=== PATIENT | female | born 1980 | race African-American/Black ===

== ENCOUNTER 2022-08-25 02:16 | Inpatient (IN) | payer BC, SELFPAY ==
--- NOTE | ~2022-08-25 | CT_ITS ---
EXAMINATION: CT HEAD WITHOUT CONTRAST CLINICAL INFORMATION: Altered mental status COMPARISON: None. TECHNIQUE: Contiguous axial imaging was performed from the skull base to vertex without intravenous contrast. This CT examination was performed using dose optimization techniques as appropriate, variously including the following: * Automated exposure control * Adjustment of mA and/or kV according to patient size (this includes techniques or standardized protocols for targeted exams where dose is matched to indication/reason for exam; i.e. extremities or head) Use of iterative reconstruction technique DLP: 696 mGy-cm. FINDINGS: There is no evidence of acute intracranial hemorrhage or territorial infarction. No abnormal mass effect or midline shift is seen. Mcdonnell to white matter differentiation is well preserved. No extra-axial fluid collections are identified. No hydrocephalus. No significant volume loss. There is no abnormal attenuation within the brain parenchyma. The osseous structures and soft tissues are normal. The mastoid air cells and visualized portions of the paranasal sinuses are well aerated. CT/CT head/brain wo IV con IMPRESSION: No acute intracranial pathology.
[2022-08-25 02:21] VITALS: BP 118/74; PULSE 91; RESP 16; TEMP 36.8; O2SAT 99; BMI 20.6
[2022-08-25 03:19] LABS: Appearance Urine Clear; Color Urine Yellow; Glucose Urine UA Negative (Negative); Leukocyte Esterase Urine Negative (Negative); Nitrite Urine Negative (Negative); PH 6.5 (5.0-9.0); Specific Gravity - Urine <= 1.005 (1.005-1.025); UMIC TRIGGER UA YES; Urine Blood Trace (Negative); Urine Ketones 15 mg/dL (Negative); Urine Protein Negative (Neg-Trace)
[2022-08-25 03:23] LABS: UPreg QC Valid YES; Urine Pregnancy NEGATIVE (NEGATIVE)
[2022-08-25] MEDS: diphenhydrAMINE HCL 25 MG CAPSULE 50 MG PO (03:24)
[2022-08-25 03:28] LABS: Bacteria Urine Trace (None Seen); Hyaline Casts Urine 0-2 /LPF (0-2); RBC Urine 0-2 /HPF (0-2); WBC Urine 0-5 /HPF (0-5)
[2022-08-25 03:30] LABS: MANUAL DIFF FLAG NO
[2022-08-25 03:30] LABS: COVID-19 Test Negative (Negative); IDNOW Serial# 6674DD1D
[2022-08-25 03:31] LABS: Basophils Percent Auto 0.2 % (0-2); Eosinophils Percent Auto 0.2 % (0-4); Hematocrit 39.3 % (37.0-47.0); Hemoglobin 13.7 g/dl (12.0-16.0); Imm Gran Abs Auto 0.05 X10*3/uL (0.00-0.03); Imm Gran Pct Auto 0.3 % (0.0-0.4); Lymphocytes Absolute Auto 3.2 X10*3/uL (1.2-4.9); Lymphocytes Percent Auto 18.2 % (20-40); Mean Corpuscular HGB Conc 34.9 g/dl (31.0-35.0); Mean Corpuscular Volume 86.2 fL (80.0-98.0); Monocytes Absolute Auto 1.2 X10*3/uL (0.1-1.2); Monocytes Percent Auto 6.6 % (2-11); Neutrophils Absolute Auto 13.2 x10*3/uL (2.0-8.3); Neutrophils Percent Auto 74.5 % (45-73); Platelet Count 317 X10*3/uL (160-400); Red Blood Count 4.56 X10*6/uL (4.20-5.50); Red Cell Distribution Width 13.5 % (11.0-16.0); White Blood Count 17.7 X10*3/uL (4.8-10.8)
[2022-08-25 03:39] LABS: Amphetamine Screen Urine Not Detected (Not Detect); Barbiturates, Urine Not Detected (Not Detect); Benzodiazepines Screen Urine Not Detected (Not Detect); Cannabinoid Screen Urine POSITIVE (Not Detect); Cocaine Screen Urine Not Detected (Not Detect); Fentanyl, urine Not Detected (Not Detect); Opiate Screen Urine Not Detected (Not Detect); Phencyclidine Screen Urine Not Detected (Not Detect)
[2022-08-25 03:51] LABS: Alanine Aminotransferase 21 U/L (0-31); Albumin Level 4.5 g/dL (3.5-5.0); Alkaline Phosphatase 52 U/L (39-117); Anion Gap 16 (12-20); Aspartate Amino Transferase 15 U/L (5-31); Bilirubin Total 0.8 mg/dL (0.0-1.0); Blood Urea Nitrogen 8 mg/dL (9-16); Calcium 9.4 mg/dL (8.4-10.2); Carbon Dioxide 22 mmol/L (22-29); Chloride 106 mmol/L (96-108); Creatinine Clr Calc Pharmacy 104.9; Estimated Glomerular Filt Rate > 60; Ethanol < 10 mg/dL; Glucose Random 103 mg/dL (60-115); Potassium 3.9 mmol/L (3.3-5.1); Sodium 140 mmol/L (135-145); Total Protein 7.2 g/dL (6.5-8.0)
--- NOTE | 2022-08-25 05:58 | PC.NURSE ---
Patient currently in bed appears sleeping, no distress observed/reported at this time, med rec completed/pending provider's approval, Benadryl 50 mg administered at 0324 as ordered with + effect, thought content disorganized, thought process tangential, VSS, care consult ordered, pending evaluation, will continue to monitor.
--- NOTE | 2022-08-25 06:51 | ED_ITS ---
HPI - Psych General Chief Complaint: Psychiatric Symptoms Stated Complaint: Crisis Time Seen by Provider: 08/25/22 03:37 Source: patient Mode of arrival: ambulatory Limitations: no limitations History of Present Illness HPI Narrative: Patient comes in the emergency room, according to family and friends, patient has not been making sense. Patient has been having delusions and hallucinations. Patient states that she has been vomiting because she needs to drink coconut water from the [place] . Patient states that in 2019 since she would COVID, all of her symptoms exacerbated. Patient is not making much sense. Family reports that the patient has been having poor sleep quality months, out of her medications Related Data Home Medications Medication Instructions Recorded Confirmed budesonide-formoterol HFA 160 2 puff inhalation BID 08/25/22 08/25/22 mcg-4.5 mcg/actuation aerosol inhaler (Symbicort) fluticasone propionate 50 1 spray intranasal DAILY 08/25/22 08/25/22 mcg/actuation nasal spray,suspension sertraline 150 mg capsule 150 mg PO DAILY 08/25/22 08/25/22 Allergies Allergy/AdvReac Type Severity Reaction Status Date / Time Sulfa (Sulfonamide Allergy Intermediate Swelling Verified 08/25/22 03:08 Antibiotics) amoxicillin Allergy Nausea Verified 08/25/22 03:07 Review of Systems Review of Systems: Yes Unobtainable due to mental condition [facility] Past Medical History Medical History (Updated 08/25/22 @ 06:58 by Blaire Rubio MD) Depression Social History Social History Advance Directives: No Physical Exam Vital Signs: Vital Signs: Last Vital Signs Temp 98.3 F 08/25/22 02:21 Pulse 91 08/25/22 02:21 Resp 16 08/25/22 02:21 BP 118/74 08/25/22 02:21 Pulse Ox 99 08/25/22 02:21 O2 Del Method 08/25/22 02:21 BMI result Body Mass Index 20.6 Const: Other: Appearance: Alert. No acute distress. Not making sense Eyes: Pupils equal, round and reactive to light. ENT: Pharynx normal. Neck: Normal inspection. Neck supple. No lymph nodes noted. No crepitus CVS: Normal heart rate and rhythm. Pulses normal. Normal S1 and S2 Respiratory: No respiratory distress. Breath sounds normal. No Wheezing. No rales Abdomen: Soft and nontender. No rigidity. No distention. Skin: Skin warm and dry. Normal skin color. Normal skin turgor. Extremities: No lower extremity edema. No Lacerations. No Rash Neuro: No motor deficit. No sensory deficit. Moving all extremities. No slurred speech. CN 2 through 12 grossly intact Psych: calm, cooperative, normal affect Medications Administered Discontinued Medications Generic Name Dose Route Start Last Admin Trade Name Freq PRN Reason Stop Dose Admin Diphenhydramine HCl 50 mg 08/25/22 03:21 08/25/22 03:24 Diphenhydramine Hcl 25 Mg Capsule PO 08/25/22 03:22 50 mg ONCE ONE Administration Medical Decision Making Medical Decision Making MDM Narrative: -patient smoked marijuana. Unclear if patient has psychosis from smoke marijuana. -patient reported vomiting prior to arrival, patient has not vomited in the ED. patient does not seem dehydrated. -white blood cell count likely reactive leukocytosis. -patient has history of depression but no other psychiatric disorder. We will go ahead and do a CT scan. -patient has no neck rigidity or pain, encephalitis not suspected -please follow-up CT scan. -sign-out given to Dr. Hoffman Lab Data 08/25/22 03:24 08/25/22 03:24 Labs: Lab Results 08/25/22 08/25/22 08/25/22 Range/Units 03:09 03:09 03:09 WBC (4.8-10.8) X10*3/uL RBC (4.20-5.50) X10*6/uL Hgb (12.0-16.0) g/dl Hct (37.0-47.0) % MCV (80.0-98.0) fL MCH (27.0-33.0) pg MCHC (31.0-35.0) g/dl RDW (11.0-16.0) % Plt Count (160-400) X10*3/uL MPV (9.4-12.3) fL Immature Gran % (Auto) (0.0-0.4) % Neut % (Auto) (45-73) % Lymph % (Auto) (20-40) % Haakon % (Auto) (2-11) % Eos % (Auto) (0-4) % Baso % (Auto) (0-2) % Lymph # (Auto) (1.2-4.9) X10*3/uL Haakon # (Auto) (0.1-1.2) X10*3/uL Eos # (Auto) (0.0-0.4) X10*3/uL Baso # (Auto) (0.0-0.2) X10*3/uL Abs Immat Gran (auto) (0.00-0.03) X10*3/uL Absolute Neuts (auto) (2.0-8.3) x10*3/uL Absolute Nucleated RBC (0.0-0.012) X10*3/uL Nucleated RBC % (auto) (0.0-0.2) /100WBC Sodium (135-145) mmol/L Potassium (3.3-5.1) mmol/L Chloride (96-108) mmol/L Carbon Dioxide (22-29) mmol/L Anion Gap (12-20) BUN (9-16) mg/dL Creatinine (0.5-1.4) mg/dL Estim Creat Clear Calc Estimated GFR Random Glucose (60-115) mg/dL Calcium (8.4-10.2) mg/dL Total Bilirubin (0.0-1.0) mg/dL AST (5-31) U/L ALT (0-31) U/L Alkaline Phosphatase (39-117) U/L Total Protein (6.5-8.0) g/dL Albumin (3.5-5.0) g/dL Urine Color Yellow Urine Appearance Clear Urine pH 6.5 (5.0-9.0) Ur Specific [place] <= 1.005 (1.005-1.025) Urine Protein Negative (Neg-Trace) mg/dL Urine Glucose (UA) Negative (Negative) mg/dL Urine Ketones 15 (Negative) mg/dL Urine Blood Trace H (Negative) Urine Nitrite Negative (Negative) Ur Leukocyte Esterase Negative (Negative) Urine RBC 0-2 (0-2) /HPF Urine WBC 0-5 (0-5) /HPF Ur Squamous Epith Cells 6-10 (0-2) /HPF Urine Bacteria Trace (None Seen) Hyaline Casts 0-2 (0-2) /LPF Urine Test (NEGATIVE) Urine Opiates Screen Not Detected (Not Detect) Urine Fentanyl Screen Not Detected (Not Detect) Ur Barbiturates Screen Not Detected (Not Detect) Ur Phencyclidine Scrn Not Detected (Not Detect) Ur Amphetamines Screen Not Detected (Not Detect) U Benzodiazepines Scrn Not Detected (Not Detect) Urine Cocaine Screen Not Detected (Not Detect) U Marijuana (THC) Screen POSITIVE H (Not Detect) Ethyl Alcohol mg/dL COVID-19 (DUTCH) Negative (Negative) COVID-19 Clin Com See Note 08/25/22 08/25/22 08/25/22 Range/Units 03:09 03:24 03:24 WBC 17.7 H (4.8-10.8) X10*3/uL RBC 4.56 (4.20-5.50) X10*6/uL Hgb 13.7 (12.0-16.0) g/dl Hct 39.3 (37.0-47.0) % MCV 86.2 (80.0-98.0) fL MCH 30.0 (27.0-33.0) pg MCHC 34.9 (31.0-35.0) g/dl RDW 13.5 (11.0-16.0) % Plt Count 317 (160-400) X10*3/uL MPV 9.0 L (9.4-12.3) fL Immature Gran % (Auto) 0.3 (0.0-0.4) % Neut % (Auto) 74.5 H (45-73) % Lymph % (Auto) 18.2 L (20-40) % Haakon % (Auto) 6.6 (2-11) % Eos % (Auto) 0.2 (0-4) % Baso % (Auto) 0.2 (0-2) % Lymph # (Auto) 3.2 (1.2-4.9) X10*3/uL Haakon # (Auto) 1.2 (0.1-1.2) X10*3/uL Eos # (Auto) 0.0 (0.0-0.4) X10*3/uL Baso # (Auto) 0.0 (0.0-0.2) X10*3/uL Abs Immat Gran (auto) 0.05 H (0.00-0.03) X10*3/uL Absolute Neuts (auto) 13.2 H (2.0-8.3) x10*3/uL Absolute Nucleated RBC 0.000 (0.0-0.012) X10*3/uL Nucleated RBC % (auto) 0.0 (0.0-0.2) /100WBC Sodium 140 (135-145) mmol/L Potassium 3.9 (3.3-5.1) mmol/L Chloride 106 (96-108) mmol/L Carbon Dioxide 22 (22-29) mmol/L Anion Gap 16 (12-20) BUN 8 L (9-16) mg/dL Creatinine 0.72 (0.5-1.4) mg/dL Estim Creat Clear Calc 104.9 Estimated GFR > 60 Random Glucose 103 (60-115) mg/dL Calcium 9.4 (8.4-10.2) mg/dL Total Bilirubin 0.8 (0.0-1.0) mg/dL AST 15 (5-31) U/L ALT 21 (0-31) U/L Alkaline Phosphatase 52 (39-117) U/L Total Protein 7.2 (6.5-8.0) g/dL Albumin 4.5 (3.5-5.0) g/dL Urine Color Urine Appearance Urine pH (5.0-9.0) Ur Specific [place] (1.005-1.025) Urine Protein (Neg-Trace) mg/dL Urine Glucose (UA) (Negative) mg/dL Urine Ketones (Negative) mg/dL Urine Blood (Negative) Urine Nitrite (Negative) Ur Leukocyte Esterase (Negative) Urine RBC (0-2) /HPF Urine WBC (0-5) /HPF Ur Squamous Epith Cells (0-2) /HPF Urine Bacteria (None Seen) Hyaline Casts (0-2) /LPF Urine Test NEGATIVE (NEGATIVE) Urine Opiates Screen (Not Detect) Urine Fentanyl Screen (Not Detect) Ur Barbiturates Screen (Not Detect) Ur Phencyclidine Scrn (Not Detect) Ur Amphetamines Screen (Not Detect) U Benzodiazepines Scrn (Not Detect) Urine Cocaine Screen (Not Detect) U Marijuana (THC) Screen (Not Detect) Ethyl Alcohol < 10 mg/dL COVID-19 (DUTCH) (Negative) COVID-19 Clin Com Discharge Plan Discharge Clinical Impression: Acute psychosis Patient Disposition: Still a Patient Prescriptions: No Action sertraline 150 mg Capsule 150 mg PO DAILY budesonide-formoterol [Symbicort] 160-4.5 mcg/actuation Hfa Aerosol Inhaler 2 puff INHALATION BID fluticasone propionate [Flonase] 50 mcg/actuation [place],Suspension 1 spray INTRANASAL DAILY Rx Instructions: administer into each nostril Interventions: Crook-Suicide Risk Severity Scale Last Done: 08/25/22 05:41
--- NOTE | 2022-08-25 08:02 | PC.NURSE ---
pt to ct. scan via w/c and back to room with security and mha.
--- NOTE | 2022-08-25 08:32 | PC.NURSE ---
pt's sister called from [place] stating that their mother is sick in [place], but a family friend abdoul beach [phone] will come to visit the pt.
--- NOTE | 2022-08-25 08:38 | PC.NURSE ---
pt spoke to her sister on the phone and appeared to hung up on her sister. pt stated chanting her prayers along with stating if i am the only one that's going to have tomeka, i will have tomeka for all of them . pt then burst out into tears for approx 1 min and laid prone on the floor. pt is now sitting in chair in hallway near nursing station get lab work done.
[2022-08-25 08:39] LABS: Lactic Acid 0.7 mmol/L (0.5-2.0)
--- NOTE | 2022-08-25 08:46 | PC.NURSE ---
pt family friend abdoul beach ([phone]) [place] [facility] [place] that [place] will visit sometime today.
--- NOTE | 2022-08-25 10:41 | PC.NURSE ---
pt's brother sandra ([phone]) called [facility] [place] speaks with [place], but this rn asked him to call back because pt had just hung up on someone on the phone, was screaming and sat on the floor.
--- NOTE | 2022-08-25 11:10 | PC.NURSE ---
pt's family friend abdoul visiting at bedside.
[2022-08-25] MEDS: diphenhydrAMINE HCL 25 MG CAPSULE PO ×2 (11:25→19:00)
[2022-08-25] MEDS: Sertraline HCL 50 MG TABLET 150 MG PO (11:25)
[2022-08-25 11:40] VITALS: BP 129/82; PULSE 94; RESP 18; TEMP 37.1; O2SAT 94
--- NOTE | 2022-08-25 12:25 | PC.NURSE ---
pt's sister alisa ([phone]) called but pt was trying to take a nap.
[2022-08-25] MEDS: Fluticasone/Vilanterol 200/25 BLST.W.DEV 2 PUFF INHALE (12:36)
[2022-08-25] MEDS: Fluticasone Propionate Nasal 16 GM SPRAY 1 SPRAY NOSTRIL-B (12:36)
--- NOTE | 2022-08-25 12:41 | PC.NURSE ---
pt sister ericka nicole ([phone]) called but pt was in her room trying to take a nap.
--- NOTE | 2022-08-25 13:26 | PC.NURSE ---
permission given by supervisor in charge (ashish) pt can have non-plastic/sterofoam cup to drink from. per family pt studied/s effects of plastic/sterofoam on humans that's why she will not/refuses to eat from anything that is plastic/sterofoam.
--- NOTE | 2022-08-25 13:56 | PC.NURSE ---
pt's health care proxy and eldest sister (arlen cole, ) states and gave permisson for any and all medical info/dx/treatment/intervention to be discussed with abdoul beach ([phone]) and/or florian magdaleno therapist ([phone]).
--- NOTE | 2022-08-25 16:08 | PC.NURSE ---
pt resting on bed at this time, sleeping, respirations even and unlabored. Pt did take shower with no issues. Denies SI/HI at this time
--- NOTE | 2022-08-25 16:42 | PC.NURSE ---
pt awake, walking around with other patient at this time
--- NOTE | 2022-08-25 17:01 | PC.NURSE ---
pt requesting to leave and to have her items. Calling Gavin, her friend at this time
--- NOTE | 2022-08-25 18:30 | PC.NURSE ---
PT WAS FOUND IN THE BATHROOM DRY HEAVING. SHE THEN GOT UP AND STOOD IN THE TOILET. SHE WAS ABLE TO BE REDIRECTED BACK TO HER ROOM/ SHE IS TEARFUL, DECLINES TO REMOVE WET SOCKS
[2022-08-25] MEDS: HaloperidoL 5 MG TABLET PO (19:00)
[2022-08-25] MEDS: LORazepam 1 MG TABLET 2 MG PO (19:00)
--- NOTE | 2022-08-25 19:12 | PC.NURSE ---
Late Entry: at approximately 1830, the pt started getting agitated, wanting to leave, attempting to exit. Pt was able to be re-directed to her room but in her room she began screaming. Shortly after she fell asleep. Pt awoke approximately 20 minutes ago and was willing to take her medications
[2022-08-26 05:53] VITALS: BP 109/77; PULSE 85; RESP 17; TEMP 36.8; O2SAT 97
--- NOTE | 2022-08-26 06:03 | PC.NURSE ---
Patient slept through the night, no distress observed/reported, behavior non concerning, positive from Haldol 5 mg administered [id number], thought content paranoid and delusional, disposition per care team is section 12 inpatient bed search, VSS, medication compliant, will continue to monitor.
[2022-08-26] MEDS: Fluticasone/Vilanterol 200/25 BLST.W.DEV 2 PUFF INHALE (09:09)
[2022-08-26] MEDS: Sertraline HCL 50 MG TABLET 150 MG PO (09:10)
[2022-08-26] MEDS: Fluticasone Propionate Nasal 16 GM SPRAY 1 SPRAY NOSTRIL-B (09:10)
--- NOTE | 2022-08-26 10:09 | ECG_ITS ---
Test Reason : check qt Blood Pressure : / mmHG Vent. Rate : 076 BPM Atrial Rate : 076 BPM P-R Int : 150 ms QRS Dur : 090 ms QT Int : 388 ms P-R-T Axes : 057 -48 047 degrees QTc Int : 436 ms Sinus rhythm with marked sinus arrhythmia Left anterior fascicular block Abnormal ECG No previous ECGs available Referred By: Anmol Gagnon Electronically Signed By:Eric Bergman
[2022-08-26 17:15] VITALS: BP 122/88; PULSE 97; RESP 14; TEMP 36.3; O2SAT 97
--- NOTE | 2022-08-26 20:02 | PC.ADMIT ---
PT is a 41 year old [facility] female that arrived on this unit via wheelchair @ 17:15 from the [facility] [place] and was placed on 15 minute safety checks. Legal Status: CV. PT does not have a mental mental health hx and was referred by her therapist. PT has had a change in mental status over the last few weeks and per family and close friend has been delusional, religiously preoccupied and paranoid which is off her baseline. 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 PT attended the and family treated her very poorly while she was there. PT describes coming from poverty in [place] and obtaining her PhD here in the [place] and now feeling like a failure due to not being able to work. PT reports insomnia x 1 month. COVID neg, TOX + for marijuana (pt states it is medicinal), CT negative. 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 PT is a non smoker, quit 3 weeks ago and does not wish to receive any nicotine replacement. PT has already received her flu vaccine this season. All legals signed, treatment plan completed, safety tool to be completed tomorrow due to patient feeling overwhelmed. VS stable and pt is resting comfortably at this time.
[2022-08-26] MEDS: traZODone HCL 50 MG TABLET PO (21:26)
[2022-08-26] MEDS: diphenhydrAMINE HCL 25 MG CAPSULE 50 MG PO (22:42)
--- NOTE | 2022-08-26 23:30 | PC.NURSE ---
Late entry; at approximately 22:30 pt reported feeling congested & my tongue feels funny . PT reports she ate some M&Ms and is worried she may be having an allergic reaction to the the dye (unsure which color dye) but this has happened in the past and she took Benadryl 50mg and the symptoms resolved. call center trainer (Maria L Maza) contacted, order obtained for Benadryl 50mg. PT took PO and symptoms have now resolved.
[2022-08-27 08:30] VITALS: BP 105/58; PULSE 90; RESP 18; TEMP 36.2; O2SAT 98
[2022-08-27] MEDS: Fluticasone Propionate Nasal 16 GM SPRAY 1 SPRAY NOSTRIL-B (08:43)
[2022-08-27] MEDS: Fluticasone/Vilanterol 200/25 BLST.W.DEV 2 PUFF INHALE (08:43)
[2022-08-27 09:09] LABS: Estimated Average Glucose 105 mg/dL; Hemoglobin A1c % 5.3 %
[2022-08-27 09:11] LABS: Alanine Aminotransferase 30 U/L (0-31); Albumin Level 4.7 g/dL (3.5-5.0); Alkaline Phosphatase 61 U/L (39-117); Anion Gap 17 (12-20); Aspartate Amino Transferase 39 U/L (5-31); Bilirubin Total 1.2 mg/dL (0.0-1.0); Blood Urea Nitrogen 9 mg/dL (9-16); Carbon Dioxide 23 mmol/L (22-29); Chloride 104 mmol/L (96-108); Cholesterol 215 mg/dL; Creatinine Clr Calc Pharmacy 79.5; Estimated Glomerular Filt Rate > 60; Glucose Fasting 109 mg/dL (60-99); HDL Cholesterol 59 mg/dL; LDL Cholesterol Calculated 140 mg/dl; Potassium 5.2 mmol/L (3.3-5.1); Sodium 139 mmol/L (135-145); Triglycerides 80 mg/dL
[2022-08-27 09:41] LABS: Folate 15.7 ng/mL (> or = 4.0); Free T4 (Free Thyroxine) 1.16 ng/dL (0.71-1.85); Thyroid Stimulating Hormone 1.21 uIU/mL (0.32-4.0); Vitamin B12 1568 pg/mL (200-900)
--- NOTE | 2022-08-27 11:27 | P.HPPS_ITS ---
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 Pt reports chronic mild-moderate depression throughout life, sometimes severe, not attending to ADL's; no hx of manic symtoms. 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 Pt was changed to Zoloft and in May 2022 it was quickly titrated to 150mg at which point pt said she quickly felt really good... at this time She also started medical cannabis and started having great ideas...visions and ideas started and became what sounds likely to be hypomanic. Pt is aware that Recently increased stressors Pt's brother 2 weeks ago and foreign Visa troubles seems to have pushed patient into noel. Pt is grandiose, showing conventional mortgage underwriter non- sense math equations about infinity; she says i did things so the police would come, it was ex-finity and if unplugged the police would come...i have all these ideas and need to write down...give it to the FBI... Pt madina a map of [place], said we've been lied to and map is upside down... Pt said she has not slept more than 2 hours a night in weeks. Today on the unit, she thought she was and went into labor in hallway, though was able to be redirected. Pt agrees that she is probably manic and so came in for treatment. No drugs/alcohol; currently no AVH; no SI/HI. Agrees to start [place]. Past Psychiatric History: depression/anxiety; has therapist trials of Lexapro, Wellbutrin, Zoloft Medical Evaluation Reviewed: Yes [facility] Medical History (Updated 08/28/22 @ 09:29 by Mekhi Gallegos MD) Depression PTSD (post-traumatic stress disorder) Family History: brother: bipolar Social History: from [place] PhD in [employer], teaches at [employer] Foreign Visa concerns Substance History: none; uses medical cannabis Trauma History: hx of trauma as teenager; also as professor Diagnostics Vital Signs (24Hr): Vital Signs - 24 hr 08/26/22 17:15 08/27/22 08:30 Temperature 97.3 F 97.1 F Pulse Rate 97 90 Respiratory Rate 14 18 Blood Pressure 122/88 105/58 L Pulse Oximetry 97 98 Oxygen Delivery Method Room Air Room Air BMI result Body Mass Index 20.6 Labs 08/25/22 03:24 08/27/22 08:25 Labs: Laboratory Results - last 48 hr 08/27/22 08/27/22 08:25 08:25 Sodium 139 Potassium 5.2 H D Chloride 104 Carbon Dioxide 23 Anion Gap 17 BUN 9 Creatinine 0.95 Estim Creat Clear Calc 79.5 Estimated GFR > 60 Fasting Glucose 109 H Estimat Average Glucose 105 Hemoglobin A1c % 5.3 Calcium 10.0 D Magnesium 2.0 Total Bilirubin 1.2 H AST 39 H ALT 30 Alkaline Phosphatase 61 Total Protein 8.0 Albumin 4.7 Triglycerides 80 Cholesterol 215 LDL Cholesterol, Calc 140 HDL Cholesterol 59 Vitamin B12 1568 H Folate 15.7 TSH 1.21 Free T4 1.16 Imaging Radiology Impressions: ITS Impressions Head CT 08/25/22 08:13 IMPRESSION: No acute intracranial pathology. Meds/Allergies Meds Home Medications Medication Instructions Recorded Confirmed Type budesonide-formoterol HFA 160 2 puff inhalation BID 08/25/22 08/25/22 History mcg-4.5 mcg/actuation aerosol inhaler (Symbicort) fluticasone propionate 50 1 spray intranasal DAILY 08/25/22 08/25/22 History mcg/actuation nasal spray,suspension sertraline 150 mg capsule 150 mg PO DAILY 08/25/22 08/25/22 History Allergies Allergies Allergy/AdvReac Type Severity Reaction Status Date / Time Sulfa (Sulfonamide Allergy Intermediate Swelling Verified 08/25/22 03:08 Antibiotics) amoxicillin Allergy Nausea Verified 08/25/22 03:07 Mental Status Exam Mental Status Exam Narrative: Pt is alert and oriented; behavior is cooperative, friendly, manic, verbose; patient is not in distress; dressed in casual attire adequate groomed; mood is described as good and affect expansive; eye contact appropriate; Speech is hyperverbal, moderately pressured; normal volume and prosody; psychomotor agitation present; thought process can be goal directed, but also tangential, moderately disorganized; Thought content is on grandiose ideas; denies any SI/HI. Denies AVh. Patients insight and judgment are impaired. 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 -hx of depression, sometimes severe; this is first manic episode triggered by titrated Zoloft (plus cannabis). Pt grandiose and manic, but has insight into illness and wants treatment. Agreed to start [place] PLAN: CV Q15 min checks START [place] ER 600mg qhs continue trazodone 50mg since pt said made her sleep for first time in week DC zoloft as it's triggered noel will address meds for ptsd/anxiety once mood is stabilized repeat CMP/CBC since elevated lab values on admission Patient educated on: diagnosis and medication risk/benefits Informed Consent: understands and further education needed Reason for continued inpatient stay Substantial Risk for: inability to function Statement Statement: I have reviewed the history and physical and performed a pertinent examination on my patient. No changes have occurred unless specified. If the History and Physical was not performed prior to admission, the Hospitalist's service will be consulted for completing the admission physical. Time Spent With Patient Time: Total time managing care of this patient today ____ minutes.
[2022-08-27] MEDS: Acetaminophen 325 MG TABLET 650 MG PO (14:22)
[2022-08-27 14:32] VITALS: BMI 20.5
[2022-08-27 18:00] VITALS: BP 118/78; PULSE 85; RESP 16; TEMP 36.4; O2SAT 98
[2022-08-27] MEDS: Magnesium Hydrox/Alum Hydrox 30 ML ORAL.SUSP PO (18:02)
[2022-08-27] MEDS: traZODone HCL 50 MG TABLET PO (21:03)
[2022-08-27] MEDS: Lithium Carbonate ER 300 MG TABLET.ER 600 MG PO (21:03)
[2022-08-28 08:12] LABS: MANUAL DIFF FLAG NO
[2022-08-28 08:15] LABS: Basophils Absolute Auto 0.1 X10*3/uL (0.0-0.2); Basophils Percent Auto 0.4 % (0-2); Eosinophils Absolute Auto 0.3 X10*3/uL (0.0-0.4); Hematocrit 44.4 % (37.0-47.0); Hemoglobin 14.8 g/dl (12.0-16.0); Imm Gran Abs Auto 0.07 X10*3/uL (0.00-0.03); Imm Gran Pct Auto 0.5 % (0.0-0.4); Lymphocytes Absolute Auto 3.2 X10*3/uL (1.2-4.9); Lymphocytes Percent Auto 22.3 % (20-40); Mean Corpuscular HGB Conc 33.3 g/dl (31.0-35.0); Mean Corpuscular Hemoglobin 29.7 pg (27.0-33.0); Mean Corpuscular Volume 89.2 fL (80.0-98.0); Mean Platelet Volume 9.2 fL (9.4-12.3); Monocytes Absolute Auto 0.9 X10*3/uL (0.1-1.2); Monocytes Percent Auto 6.4 % (2-11); Neutrophils Absolute Auto 9.8 x10*3/uL (2.0-8.3); Neutrophils Percent Auto 68.4 % (45-73); Platelet Count 322 X10*3/uL (160-400); Red Blood Count 4.98 X10*6/uL (4.20-5.50); Red Cell Distribution Width 13.4 % (11.0-16.0); White Blood Count 14.3 X10*3/uL (4.8-10.8)
[2022-08-28 08:31] LABS: Alanine Aminotransferase 32 U/L (0-31); Albumin Level 4.5 g/dL (3.5-5.0); Alkaline Phosphatase 61 U/L (39-117); Anion Gap 13 (12-20); Aspartate Amino Transferase 39 U/L (5-31); Bilirubin Total 0.6 mg/dL (0.0-1.0); Blood Urea Nitrogen 7 mg/dL (9-16); Calcium 9.7 mg/dL (8.4-10.2); Carbon Dioxide 26 mmol/L (22-29); Chloride 103 mmol/L (96-108); Estimated Glomerular Filt Rate > 60; Glucose Random 82 mg/dL (60-115); Potassium 4.8 mmol/L (3.3-5.1); Sodium 137 mmol/L (135-145); Total Protein 7.4 g/dL (6.5-8.0)
[2022-08-28 10:45] VITALS: BP 120/59; PULSE 90; RESP 18; TEMP 36.9; O2SAT 98
--- NOTE | 2022-08-28 15:38 | P.PNPSI_ITS ---
Subjective Subjective Date of Service: 08/28/22 Reason For Visit: Rule out Thea with Psychosis Subjective Notes: Conditional Voluntary Interim History: Pt talkative, reports she has been helping other patients on the unit as she has calmer demeanor. She reports last night it was very chaotic on unit and she was not able to sleep. She reports wanting to go home as she does not feel safe here. She reports something odd was happening at apartment complex where she resides and she had asked to be moved somewhere else. She denies SI/HI. Taking medications. She reports she has two male peers convinced that I'm their , so they behave. Pt observed giving note to one male pt while on the unit. redirected in terms of boundaries. Review of Systems Review of Systems Yes Unobtainable due to mental condition Mental Status Exam Mental Status Exam Narrative: Pt is alert and oriented; behavior is cooperative, friendly, manic, verbose; patient is not in distress; dressed in casual attire adequate groomed; mood is described as good and affect expansive; eye contact appropriate; Speech is hyperverbal, moderately pressured; normal volume and prosody; psychomotor agitation present; thought process can be goal directed, but also tangential, moderately disorganized; Thought content is on grandiose ideas; denies any SI/HI. Denies AVh. Patients insight and judgment are impaired. Diagnostics Vital Signs (24Hr): Vital Signs - 24 hr 08/27/22 18:00 08/28/22 10:45 Temperature 97.6 F 98.4 F Pulse Rate 85 90 Respiratory Rate 16 18 Blood Pressure 118/78 120/59 L Pulse Oximetry 98 98 Oxygen Delivery Method Room Air Room Air BMI result Body Mass Index 20.5 Labs 08/28/22 07:54 08/28/22 07:54 Labs: Laboratory Results - last 48 hr 08/27/22 08/27/22 08/28/22 08:25 08:25 07:54 WBC 14.3 H RBC 4.98 Hgb 14.8 Hct 44.4 MCV 89.2 MCH 29.7 MCHC 33.3 RDW 13.4 Plt Count 322 MPV 9.2 L Immature Gran % (Auto) 0.5 H Neut % (Auto) 68.4 Lymph % (Auto) 22.3 [facility] % (Auto) 6.4 Eos % (Auto) 2.0 Baso % (Auto) 0.4 Lymph # (Auto) 3.2 [facility] # (Auto) 0.9 Eos # (Auto) 0.3 Baso # (Auto) 0.1 Abs Immat Gran (auto) 0.07 H Absolute Neuts (auto) 9.8 H Absolute Nucleated RBC 0.000 Nucleated RBC % (auto) 0.0 Sodium 139 Potassium 5.2 H D Chloride 104 Carbon Dioxide 23 Anion Gap 17 BUN 9 Creatinine 0.95 Estim Creat Clear Calc 79.5 Estimated GFR > 60 Random Glucose Fasting Glucose 109 H Estimat Average Glucose 105 Hemoglobin A1c % 5.3 Calcium 10.0 D Magnesium 2.0 Total Bilirubin 1.2 H AST 39 H ALT 30 Alkaline Phosphatase 61 Total Protein 8.0 Albumin 4.7 Triglycerides 80 Cholesterol 215 LDL Cholesterol, Calc 140 HDL Cholesterol 59 Vitamin B12 1568 H Folate 15.7 TSH 1.21 Free T4 1.16 08/28/22 07:54 WBC RBC Hgb Hct MCV MCH MCHC RDW Plt Count MPV Immature Gran % (Auto) Neut % (Auto) Lymph % (Auto) [facility] % (Auto) Eos % (Auto) Baso % (Auto) Lymph # (Auto) [facility] # (Auto) Eos # (Auto) Baso # (Auto) Abs Immat Gran (auto) Absolute Neuts (auto) Absolute Nucleated RBC Nucleated RBC % (auto) Sodium 137 Potassium 4.8 Chloride 103 Carbon Dioxide 26 Anion Gap 13 BUN 7 L Creatinine 0.78 Estim Creat Clear Calc 96.0 Estimated GFR > 60 Random Glucose 82 Fasting Glucose Estimat Average Glucose Hemoglobin A1c % Calcium 9.7 Magnesium Total Bilirubin 0.6 AST 39 H ALT 32 H Alkaline Phosphatase 61 Total Protein 7.4 Albumin 4.5 Triglycerides Cholesterol LDL Cholesterol, Calc HDL Cholesterol Vitamin B12 Folate TSH Free T4 Imaging Radiology Impressions: ITS Impressions Head CT 08/25/22 08:13 IMPRESSION: No acute intracranial pathology. Medications Medications Current Medications Acetaminophen (Acetaminophen 325 Mg Tablet) 650 mg PO Q6H PRN PRN Reason: Headache/Pain Mild Scale (1-3) Al Hydroxide/Mg Hydroxide (Magnesium Hydrox/Alum Hydrox 30 Ml Oral.Susp) 30 ml PO Q6H PRN PRN Reason: Heartburn/Nausea Last Admin: 08/27/22 18:02 Dose: 30 ml Diphenhydramine HCl (Diphenhydramine Hcl 25 Mg Capsule) 50 mg PO Q6H PRN PRN Reason: allergy Last Admin: 08/26/22 22:42 Dose: 50 mg Fluticasone Propionate (Fluticasone Propionate Nasal 16 Gm [place]) 1 spray NOSTRIL-B DAILY [facility] Last Admin: 08/28/22 08:27 Dose: Not Given Fluticasone/Vilanterol (Fluticasone/Vilanterol 200/25 Blst.W.Dev) 2 puff INHALE RDAILY [facility] Last Admin: 08/28/22 08:27 Dose: Not Given Hydroxyzine HCl (Hydroxyzine Hcl 25 Mg Tablet) 25 mg PO Q6H PRN PRN Reason: Anxiety [place] Carbonate ([place] Carbonate Er 300 Mg Tablet.Er) 600 mg PO BEDTIME [facility] Last Admin: 08/27/22 21:03 Dose: 600 mg Magnesium Hydroxide (Milk Of Magnesia 30 Ml Oral.Susp) 30 ml PO DAILY PRN PRN Reason: Constipation Trazodone HCl (Trazodone Hcl 50 Mg Tablet) 50 mg PO BEDTIME [facility] Last Admin: 08/27/22 21:03 Dose: 50 mg Trazodone HCl (Trazodone Hcl 50 Mg Tablet) 50 mg PO BEDTIME PRN PRN Reason: Insomnia Allergies Allergies Allergy/AdvReac Type Severity Reaction Status Date / Time Sulfa (Sulfonamide Allergy Intermediate Swelling Verified 08/25/22 03:08 Antibiotics) amoxicillin Allergy Nausea Verified 08/25/22 03:07 Assessment & Plan Assessment & Plan (1) Bipolar I disorder: Status: Acute Code(s): F31.9 - Bipolar disorder, unspecified (2) PTSD (post-traumatic stress disorder): Status: Acute Code(s): F43.10 - Post-traumatic stress disorder, unspecified Plan 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 -hx of depression, sometimes severe; this is first manic episode triggered by titrated Zoloft (plus cannabis). Pt grandiose and manic, but has insight into illness and wants treatment. Agreed to start [place] PLAN: CV Q15 min checks START [place] ER 600mg qhs continue trazodone 50mg since pt said made her sleep for first time in week DC zoloft as it's triggered thea will address meds for ptsd/anxiety once mood is stabilized repeat CMP/CBC since elevated lab values on admission 08/28 continue tx. Reason for contiued inpatient stay Substantial Risk for: inability to function Time Spent With Patient Time: Total time managing care of this patient today ____ minutes.
[2022-08-28 18:00] VITALS: BP 118/68; PULSE 91; RESP 16; TEMP 36.6; O2SAT 98
[2022-08-28] MEDS: Lithium Carbonate ER 300 MG TABLET.ER 600 MG PO (19:56)
[2022-08-28] MEDS: traZODone HCL 50 MG TABLET PO (19:57)
--- NOTE | 2022-08-28 20:04 | PC.NURSE ---
Pt's friend Gavin picked up pt's passport to take home for safe keeping. PT signed off on this.
[2022-08-28] MEDS: Fluticasone Propionate Nasal 16 GM SPRAY 1 SPRAY NOSTRIL-B (21:54)
[2022-08-29] MEDS: diphenhydrAMINE HCL 25 MG CAPSULE 50 MG PO ×2 (02:15→10:06)
[2022-08-29] MEDS: Fluticasone/Vilanterol 200/25 BLST.W.DEV 2 PUFF INHALE (08:05)
[2022-08-29] MEDS: Fluticasone Propionate Nasal 16 GM SPRAY 1 SPRAY NOSTRIL-B (08:05)
[2022-08-29 08:15] VITALS: BP 106/59; PULSE 86; RESP 16; TEMP 36.3; O2SAT 98
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
[2022-08-29 16:56] VITALS: BP 102/68; PULSE 80; RESP 18; TEMP 36.4; O2SAT 98
[2022-08-29] MEDS: Lithium Carbonate ER 300 MG TABLET.ER 600 MG PO (21:02)
[2022-08-29] MEDS: traZODone HCL 50 MG TABLET PO (21:02)
[2022-08-30] MEDS: diphenhydrAMINE HCL 25 MG CAPSULE 50 MG PO ×3 (00:06→21:56)
[2022-08-30] MEDS: Fluticasone/Vilanterol 200/25 BLST.W.DEV 2 PUFF INHALE (09:11)
[2022-08-30] MEDS: Fluticasone Propionate Nasal 16 GM SPRAY 1 SPRAY NOSTRIL-B (09:11)
[2022-08-30 09:43] VITALS: BP 127/77; PULSE 104; RESP 16; TEMP 36.8; O2SAT 99
--- NOTE | 2022-08-30 11:11 | HO.PSYCHPN ---
Subjective Subjective Date of Service: 08/30/22 Reason For Visit: Rule out Thea with Psychosis Subjective Notes: 3 Day Interim History: Met with patient. Discussed with nursing. Completed 3 day notice yesterday. It appears sister from [place] came yesterday to bring patient home. Unclear if patient has a sister to come and bring her home. Otherwise patient irritable with designer writer and reported she would not talk with him today. Did give permission to speak with her sister Chary at [phone]. As per nursing patient has been telling family there is mold in the hospital and fumigation as needed and she needs to be discharged. Nursing supervisor drying and softening aware and nursing will check areas the patient reports mood is. Medication Compliance: Intermittent Side effects from medications: No Attending Groups: Intermittent Review of Systems Acute medical concerns: No Review of Systems Review of Systems Yes Unobtainable due to mental status Mental Status Exam Mental Status Exam Narrative: Irritable. Appropriately presented. Refused to engage. Does appear to have some paranoia. Insight and judgment poor Diagnostics Vital Signs (24Hr): Vital Signs - 24 hr 08/29/22 16:56 08/30/22 09:43 Temperature 97.6 F 98.2 F Pulse Rate 80 104 H Respiratory Rate 18 16 Blood Pressure 102/68 127/77 Pulse Oximetry 98 99 Oxygen Delivery Method Room Air Room Air BMI result Body Mass Index 20.5 Labs 08/28/22 07:54 08/28/22 07:54 Imaging Radiology Impressions: ITS Impressions Head CT 08/25/22 08:13 IMPRESSION: No acute intracranial pathology. Medications Medications Current Medications Acetaminophen (Acetaminophen 325 Mg Tablet) 650 mg PO Q6H PRN PRN Reason: Headache/Pain Mild Scale (1-3) Al Hydroxide/Mg Hydroxide (Magnesium Hydrox/Alum Hydrox 30 Ml Oral.Susp) 30 ml PO Q6H PRN PRN Reason: Heartburn/Nausea Last Admin: 08/27/22 18:02 Dose: 30 ml Diphenhydramine HCl (Diphenhydramine Hcl 25 Mg Capsule) 50 mg PO Q6H PRN PRN Reason: allergy Last Admin: 08/30/22 09:14 Dose: 50 mg Fluticasone Propionate (Fluticasone Propionate Nasal 16 Gm [place]) 1 spray NOSTRIL-B DAILY [facility] Last Admin: 08/30/22 09:11 Dose: 1 spray Fluticasone/Vilanterol (Fluticasone/Vilanterol 200/25 Blst.W.Dev) 2 puff INHALE RDAILY [facility] Last Admin: 08/30/22 09:11 Dose: 2 puff Hydroxyzine HCl (Hydroxyzine Hcl 25 Mg Tablet) 25 mg PO Q6H PRN PRN Reason: Anxiety [place] Carbonate ([place] Carbonate Er 300 Mg Tablet.Er) 600 mg PO BEDTIME [facility] Last Admin: 08/29/22 21:02 Dose: 600 mg Magnesium Hydroxide (Milk Of Magnesia 30 Ml Oral.Susp) 30 ml PO DAILY PRN PRN Reason: Constipation Trazodone HCl (Trazodone Hcl 50 Mg Tablet) 50 mg PO BEDTIME [facility] Last Admin: 08/29/22 21:02 Dose: 50 mg Trazodone HCl (Trazodone Hcl 50 Mg Tablet) 50 mg PO BEDTIME PRN PRN Reason: Insomnia Allergies Allergies Allergy/AdvReac Type Severity Reaction Status Date / Time Sulfa (Sulfonamide Allergy Intermediate Swelling Verified 08/25/22 03:08 Antibiotics) amoxicillin Allergy Nausea Verified 08/25/22 03:07 Assessment & Plan Assessment & Plan (1) Bipolar I disorder: Status: Acute Code(s): F31.9 - Bipolar disorder, unspecified (2) PTSD (post-traumatic stress disorder): Status: Acute Code(s): F43.10 - Post-traumatic stress disorder, unspecified Plan 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 -hx of depression, sometimes severe; this is first manic episode triggered by titrated Zoloft (plus cannabis). Pt grandiose and manic, but has insight into illness and wants treatment. Agreed to start [place] PLAN: CV Q15 min checks START [place] ER 600mg qhs continue trazodone 50mg since pt said made her sleep for first time in week DC zoloft as it's triggered thea will address meds for ptsd/anxiety once mood is stabilized repeat CMP/CBC since elevated lab values on admission 08/30: day notice. Liaise with family as pt permits Reason for contiued inpatient stay Substantial Risk for: inability to function Time Spent With Patient Time: Total time managing care of this patient today ____ minutes.
[2022-08-30] MEDS: Acetaminophen 325 MG TABLET 650 MG PO (13:31)
[2022-08-30] MEDS: hydrOXYzine HCL 25 MG TABLET PO (13:31)
--- NOTE | 2022-08-30 14:36 | PC.NURSE ---
Pt approached secretary of police desk with a peer (Oliver) asking for a release so that she could sit in on his discussions with the doctor and advocate for his needs. When it was explained to her that he could not sign a release to another inpatient she insisted that he sign a release for her sister instead. After multiple attempts at redirection, pt eventually decided to take hydroxyzine for her anxiety and allergic symptoms and rest.
[2022-08-30] MEDS: traZODone HCL 50 MG TABLET PO (21:54)
[2022-08-30] MEDS: Lithium Carbonate ER 300 MG TABLET.ER 600 MG PO (21:54)
[2022-08-30 21:55] VITALS: BP 101/65; PULSE 77; TEMP 36.2
[2022-08-31] MEDS: diphenhydrAMINE HCL 25 MG CAPSULE 50 MG PO (06:21)
[2022-08-31] MEDS: Fluticasone/Vilanterol 200/25 BLST.W.DEV 2 PUFF INHALE (08:43)
[2022-08-31] MEDS: Fluticasone Propionate Nasal 16 GM SPRAY 1 SPRAY NOSTRIL-B (08:43)
--- NOTE | 2022-08-31 09:00 | P.PNPSI_ITS ---
Subjective Subjective Date of Service: 08/31/22 Reason For Visit: Rule out Thea with Psychosis Interim History: Met with patient; discussed with team; reviewed notes from covering provider; further discussed case with social service worker. Direct Mail Clerk finds that Patient is organized in speech and behavior; speech is regular rate, rhythm and prosody and not pressured; she is well groomed. Her thought process is linear and logical; she is calm, articulate, able to listen, and explains herself in an organized way with appropriate perspective and insight. Patient is sleeping through the night. Discussed with social service worker who agrees with this assessment and that patient is appropriate to continue care in the community. Patient reports that she is feeling much better since getting on lithium. She continues to agree that she was manic at admission but is no longer feeling anxious, depression resolved and is feeling much more clear minded; she says there are several things she does not quite remember about the days prior to admission but it is starting to come back to her and getting increasingly clear. Patient and technical publications writer discussed comments she made last week, regarding mathematical equations, map of [place]... Patient agrees that much of that does not make sense; she ties some of it into her own personal exploration of her roots to [place]; she says these are just personal thoughts and she has never shared that with anybody else and has no intentions of it. She discussed her history again and agrees that this episode was likely triggered right after her Zoloft dose was increased to 150 mg; patient also shared about other challenging things that have gone on over the past several months that have been challenging, including her work visa issues, being without income and her brother's . Patient very much wants discharge and feels that she is back to her regular self. She said it is very hard being on the unit, with people fighting and yelling (and indeed the unit has been at a high acuity over the weekend), feeling overwhelmed; patient says she is starting to feel unsafe due to the high acuity, and is keeping her distance from some patients. A 3 day notice was placed over the weekend; She continues to assert that she intended to file a 3 day notice prior to this and gave a hand written note regarding this prior to the weekend and is bothered that it cannot be found; today she she asked that her earlier request be honored instead of having to wait another 2 days for discharge. 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 Discussed medication, lithium and thoroughly reviewed risks/side effects; patient has questions and understood and wanted to continue taking it, saying this is the best she has probably ever felt. Patient is leaving before labs redrawn but agrees to come back and get labs. She is also leaving before specific psychiatric prescriber can be obtained, however she says she is very careful following up and will do so, wanting to remain on the medication. Patient reports that she has been feeling itchy over the past several days and is not sure why; technical publications writer reviewed that although very uncommon as possible for lithium to cause puritis; patient says it is tolerable and will continue taking the medication for now. Mental Status Exam Mental Status Exam Narrative: Patient is alert an oriented; behavior is cooperative, calm and organized; she is friendly. Patient is organized in speech which is regular rate, rhythm and prosody and not pressured; she is dressed in casual attire and well groomed. Her mood is good though affect a little constricted; appropriate eye contact; no paranoid, grandiose or delusional thinking; thought content is continuing to get treatment, including for history of PTSD and figuring out how she wants to proceed with her job going forward; no SI, no HI, no AVH. Her thought process is linear and logical; she is calm, articulate, able to listen, and explains herself in an organized way with appropriate perspective and insight; judgment intact Diagnostics Vital Signs (24Hr): Vital Signs - 24 hr 08/30/22 09:43 08/30/22 21:55 Temperature 98.2 F 97.1 F Pulse Rate 104 H 77 Respiratory Rate 16 Blood Pressure 127/77 101/65 Pulse Oximetry 99 Oxygen Delivery Method Room Air BMI result Body Mass Index 20.5 Labs 08/28/22 07:54 08/28/22 07:54 Imaging Radiology Impressions: ITS Impressions Head CT 08/25/22 08:13 IMPRESSION: No acute intracranial pathology. Medications Medications Current Medications Acetaminophen (Acetaminophen 325 Mg Tablet) 650 mg PO Q6H PRN PRN Reason: Headache/Pain Mild Scale (1-3) Last Admin: 08/30/22 13:31 Dose: 650 mg Al Hydroxide/Mg Hydroxide (Magnesium Hydrox/Alum Hydrox 30 Ml Oral.Susp) 30 ml PO Q6H PRN PRN Reason: Heartburn/Nausea Last Admin: 08/27/22 18:02 Dose: 30 ml Diphenhydramine HCl (Diphenhydramine Hcl 25 Mg Capsule) 50 mg PO Q6H PRN PRN Reason: allergy Last Admin: 08/31/22 06:21 Dose: 50 mg Fluticasone Propionate (Fluticasone Propionate Nasal 16 Gm [place]) 1 spray NOSTRIL-B DAILY ON LICENSE OF [facility] Last Admin: 08/31/22 08:43 Dose: 1 spray Fluticasone/Vilanterol (Fluticasone/Vilanterol 200/25 Blst.W.Dev) 2 puff INHALE RDAILY ON LICENSE OF [facility] Last Admin: 08/31/22 08:43 Dose: 2 puff Hydroxyzine HCl (Hydroxyzine Hcl 25 Mg Tablet) 25 mg PO Q6H PRN PRN Reason: Anxiety Last Admin: 08/30/22 13:31 Dose: 25 mg [place] Carbonate ([place] Carbonate Er 300 Mg Tablet.Er) 600 mg PO BEDTIME ON LICENSE OF [facility] Last Admin: 08/30/22 21:54 Dose: 600 mg Magnesium Hydroxide (Milk Of Magnesia 30 Ml Oral.Susp) 30 ml PO DAILY PRN PRN Reason: Constipation Trazodone HCl (Trazodone Hcl 50 Mg Tablet) 50 mg PO BEDTIME ON LICENSE OF [facility] Last Admin: 08/30/22 21:54 Dose: 50 mg Trazodone HCl (Trazodone Hcl 50 Mg Tablet) 50 mg PO BEDTIME PRN PRN Reason: Insomnia Allergies Allergies Allergy/AdvReac Type Severity Reaction Status Date / Time Sulfa (Sulfonamide Allergy Intermediate Swelling Verified 08/25/22 03:08 Antibiotics) amoxicillin Allergy Nausea Verified 08/25/22 03:07 Assessment & Plan Assessment & Plan (1) Bipolar I disorder: Status: Acute Code(s): F31.9 - Bipolar disorder, unspecified (2) PTSD (post-traumatic stress disorder): Status: Acute Code(s): F43.10 - Post-traumatic stress disorder, unspecified Plan 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 -hx of depression, sometimes severe; this is first manic episode triggered by titrated Zoloft (plus cannabis). Pt grandiose and manic, but has insight into illness and wants treatment. Agreed to start [place] 08/30: 3 day notice. Liaise with family as pt permits 08/31 Direct Mail Clerk finds that Patient is organized in speech and behavior; her thought process is linear and logical; she is calm, articulate, able to listen, and explains herself in an organized way with appropriate perspective and insight. Discussed with social service worker who agrees with this assessment and that patient is appropriate to continue care in the community. Patient reports that she is feeling much better since getting on lithium. She continues to agree that she was manic at admission but is no longer feeling anxious, depression resolved and is feeling much more clear minded; she says there are several things she does not quite remember about the days prior to admission but it is starting to come back to her and getting increasingly clear. Patient and technical publications writer discussed comments she made last week, regarding mathematical equations, map of [place]... Patient agrees that much of that does not make sense; she ties some of it into her own personal exploration of her roots to [place]; she says these are just personal thoughts and she has never shared that with anybody else and has no intentions of it. She discussed her history again and agrees that this episode was likely triggered right after her Zoloft dose was increased to 150 mg; patient also shared about other challenging things that have gone on over the past several months that have been ch allenging, including her work visa issues, being without income and her brother's . Discussed medication, lithium and thoroughly reviewed risks/side effects and including but not limited to avoiding NSAIDs and staying hydrated; patient has questions and understood and wanted to continue taking it, saying this is the best she has probably ever felt. Patient is leaving before labs redrawn but agrees to come back and get labs. She is also leaving before specific psychiatric prescriber can be obtained, however she says she is very careful following up and will do so, wanting to remain on the medication. Patient reports that she has been feeling itchy over the past several days and is not sure why; technical publications writer reviewed that although very uncommon as possible for lithium to cause puritis; patient says it is tolerable and will continue taking the medication for now. Patient very much wants discharge and feels that she is back to her regular self. She said it is very hard being on the unit, with people fighting and yelling (and indeed the unit has been at a high acuity over the weekend), feeling overwhelmed; patient says she is starting to feel unsafe due to the high acuity, and is keeping her distance from some patients. She signed a 3 day notice was placed over the weekend; She continues to assert that she intended to file a 3 day notice prior to this and gave a hand written note regarding this before the weekend and is bothered that it cannot be found; today she she asked that her earlier request be honored instead of having to wait another 2 days for discharge. 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 Patient has outpatient provider with whom she has good report. Patient's 3 day notice is due in 2 days; however she is not in imminent risk of harm to herself or others and does not rise to the level of involuntary commitment. As mentioned she is organized in speech and behavior and there is no reason to suspect she cannot take care of herself in the community. Patient's request for discharge honored. PLAN: CV Q15 min checks Continue [place] ER 600mg qhs continue trazodone 50mg since pt said made her sleep for first time in week DC zoloft as it's triggered thea Patient will continue to address ptsd/anxiety with outpatient provider repeat CMP/CBC WNL Patient educated on: diagnosis, medication risk/benefits and therapeutic strategies Informed Consent: understands Reason for contiued inpatient stay Substantial Risk for: stable for discharge Time Spent With Patient Time: Total time managing care of this patient today ____ minutes.
[2022-08-31] MEDS: hydrOXYzine HCL 25 MG TABLET PO (09:17)
[2022-08-31 09:23] VITALS: BP 104/64; PULSE 80; RESP 16; TEMP 36.7; O2SAT 98
--- NOTE | 2022-08-31 14:55 | P.DS_ITS ---
DS: Providers Provider Date of Service: 08/31/22 Date of admission: 08/26/22 16:29 Date of discharge: 08/31/22 Primary care physician: Sherlyn Mccain NP Attending physician on admission: Mekhi Gallegos Attending physician on discharge: Mekhi Gallegos DS: Diagnosis Discharge Diagnosis (1) Bipolar I disorder: Status: Acute (2) PTSD (post-traumatic stress disorder): Status: Acute DS: Medications Discharge Medications Home Medications: Home Medications Medication Instructions Recorded Confirmed budesonide-formoterol HFA 160 2 puff inhalation BID 08/25/22 08/25/22 mcg-4.5 mcg/actuation aerosol inhaler (Symbicort) fluticasone propionate 50 1 spray intranasal DAILY 08/25/22 08/25/22 mcg/actuation nasal spray,suspension Previous Rx's Medication Instructions Recorded lithium carbonate 300 mg 600 mg PO BEDTIME 30 days #60 tabs 08/31/22 tablet,extended release Mental Status Exam Mental Status Exam Narrative: Patient is alert an oriented; behavior is cooperative, calm and organized; she is friendly. Patient is organized in speech which is regular rate, rhythm and prosody and not pressured; she is dressed in casual attire and well groomed. Her mood is good though affect a little constricted; appropriate eye contact; no paranoid, grandiose or delusional thinking; thought content is continuing to get treatment, including for history of PTSD and figuring out how she wants to proceed with her job going forward; no SI, no HI, no AVH. Her thought process is linear and logical; she is calm, articulate, able to listen, and explains herself in an organized way with appropriate perspective and insight; judgment intact Data Data Completed and Pending Completed studies during hospitalization [Text1]: 08/25/22 08/25/22 08/25/22 03:09 03:09 03:09 WBC RBC Hgb Hct MCV MCH MCHC RDW Plt Count MPV Immature Gran % (Auto) Neut % (Auto) Lymph % (Auto) [place] % (Auto) Eos % (Auto) Baso % (Auto) Lymph # (Auto) [place] # (Auto) Eos # (Auto) Baso # (Auto) Abs Immat Gran (auto) Absolute Neuts (auto) Absolute Nucleated RBC Nucleated RBC % (auto) Sodium Potassium Chloride Carbon Dioxide Anion Gap BUN Creatinine Estim Creat Clear Calc Estimated GFR Random Glucose Fasting Glucose Estimat Average Glucose Hemoglobin A1c % Lactic Acid Calcium Magnesium Total Bilirubin AST ALT Alkaline Phosphatase Total Protein Albumin Triglycerides Cholesterol LDL Cholesterol, Calc HDL Cholesterol Vitamin B12 Folate TSH Free T4 Urine Color Yellow Urine Appearance Clear Urine pH 6.5 Ur Specific [place] <= 1.005 Urine Protein Negative Urine Glucose (UA) Negative Urine Ketones 15 Urine Blood Trace H Urine Nitrite Negative Ur Leukocyte Esterase Negative Urine RBC 0-2 Urine WBC 0-5 Ur Squamous Epith Cells 6-10 Urine Bacteria Trace Hyaline Casts 0-2 Urine Test Urine Opiates Screen Not Detected Urine Fentanyl Screen Not Detected Ur Barbiturates Screen Not Detected Ur Phencyclidine Scrn Not Detected Ur Amphetamines Screen Not Detected U Benzodiazepines Scrn Not Detected Urine Cocaine Screen Not Detected U Marijuana (THC) Screen POSITIVE H Ethyl Alcohol COVID-19 ([facility]) Negative COVID-19 Clin Com See Note 08/25/22 08/25/22 08/25/22 03:09 03:24 03:24 WBC 17.7 H RBC 4.56 Hgb 13.7 Hct 39.3 MCV 86.2 MCH 30.0 MCHC 34.9 RDW 13.5 Plt Count 317 MPV 9.0 L Immature Gran % (Auto) 0.3 Neut % (Auto) 74.5 H Lymph % (Auto) 18.2 L [place] % (Auto) 6.6 Eos % (Auto) 0.2 Baso % (Auto) 0.2 Lymph # (Auto) 3.2 [place] # (Auto) 1.2 Eos # (Auto) 0.0 Baso # (Auto) 0.0 Abs Immat Gran (auto) 0.05 H Absolute Neuts (auto) 13.2 H Absolute Nucleated RBC 0.000 Nucleated RBC % (auto) 0.0 Sodium 140 Potassium 3.9 Chloride 106 Carbon Dioxide 22 Anion Gap 16 BUN 8 L Creatinine 0.72 Estim Creat Clear Calc 104.9 Estimated GFR > 60 Random Glucose 103 Fasting Glucose Estimat Average Glucose Hemoglobin A1c % Lactic Acid Calcium 9.4 Magnesium Total Bilirubin 0.8 AST 15 ALT 21 Alkaline Phosphatase 52 Total Protein 7.2 Albumin 4.5 Triglycerides Cholesterol LDL Cholesterol, Calc HDL Cholesterol Vitamin B12 Folate TSH Free T4 Urine Color Urine Appearance Urine pH Ur Specific [place] Urine Protein Urine Glucose (UA) Urine Ketones Urine Blood Urine Nitrite Ur Leukocyte Esterase Urine RBC Urine WBC Ur Squamous Epith Cells Urine Bacteria Hyaline Casts Urine Test NEGATIVE Urine Opiates Screen Urine Fentanyl Screen Ur Barbiturates Screen Ur Phencyclidine Scrn Ur Amphetamines Screen U Benzodiazepines Scrn Urine Cocaine Screen U Marijuana (THC) Screen Ethyl Alcohol < 10 COVID-19 ([facility]) COVID-19 Clin Com 08/25/22 08/27/22 08/27/22 08:24 08:25 08:25 WBC RBC Hgb Hct MCV MCH MCHC RDW Plt Count MPV Immature Gran % (Auto) Neut % (Auto) Lymph % (Auto) [place] % (Auto) Eos % (Auto) Baso % (Auto) Lymph # (Auto) [place] # (Auto) Eos # (Auto) Baso # (Auto) Abs Immat Gran (auto) Absolute Neuts (auto) Absolute Nucleated RBC Nucleated RBC % (auto) Sodium 139 Potassium 5.2 H D Chloride 104 Carbon Dioxide 23 Anion Gap 17 BUN 9 Creatinine 0.95 Estim Creat Clear Calc 79.5 Estimated GFR > 60 Random Glucose Fasting Glucose 109 H Estimat Average Glucose 105 Hemoglobin A1c % 5.3 Lactic Acid 0.7 Calcium 10.0 D Magnesium 2.0 Total Bilirubin 1.2 H AST 39 H ALT 30 Alkaline Phosphatase 61 Total Protein 8.0 Albumin 4.7 Triglycerides 80 Cholesterol 215 LDL Cholesterol, Calc 140 HDL Cholesterol 59 Vitamin B12 1568 H Folate 15.7 TSH 1.21 Free T4 1.16 Urine Color Urine Appearance Urine pH Ur Specific [place] Urine Protein Urine Glucose (UA) Urine Ketones Urine Blood Urine Nitrite Ur Leukocyte Esterase Urine RBC Urine WBC Ur Squamous Epith Cells Urine Bacteria Hyaline Casts Urine Test Urine Opiates Screen Urine Fentanyl Screen Ur Barbiturates Screen Ur Phencyclidine Scrn Ur Amphetamines Screen U Benzodiazepines Scrn Urine Cocaine Screen U Marijuana (THC) Screen Ethyl Alcohol COVID-19 ([facility]) COVID-19 Clin Com 08/28/22 08/28/22 07:54 07:54 WBC 14.3 H RBC 4.98 Hgb 14.8 Hct 44.4 MCV 89.2 MCH 29.7 MCHC 33.3 RDW 13.4 Plt Count 322 MPV 9.2 L Immature Gran % (Auto) 0.5 H Neut % (Auto) 68.4 Lymph % (Auto) 22.3 [place] % (Auto) 6.4 Eos % (Auto) 2.0 Baso % (Auto) 0.4 Lymph # (Auto) 3.2 [place] # (Auto) 0.9 Eos # (Auto) 0.3 Baso # (Auto) 0.1 Abs Immat Gran (auto) 0.07 H Absolute Neuts (auto) 9.8 H Absolute Nucleated RBC 0.000 Nucleated RBC % (auto) 0.0 Sodium 137 Potassium 4.8 Chloride 103 Carbon Dioxide 26 Anion Gap 13 BUN 7 L Creatinine 0.78 Estim Creat Clear Calc 96.0 Estimated GFR > 60 Random Glucose 82 Fasting Glucose Estimat Average Glucose Hemoglobin A1c % Lactic Acid Calcium 9.7 Magnesium Total Bilirubin 0.6 AST 39 H ALT 32 H Alkaline Phosphatase 61 Total Protein 7.4 Albumin 4.5 Triglycerides Cholesterol LDL Cholesterol, Calc HDL Cholesterol Vitamin B12 Folate TSH Free T4 Urine Color Urine Appearance Urine pH Ur Specific [place] Urine Protein Urine Glucose (UA) Urine Ketones Urine Blood Urine Nitrite Ur Leukocyte Esterase Urine RBC Urine WBC Ur Squamous Epith Cells Urine Bacteria Hyaline Casts Urine Test Urine Opiates Screen Urine Fentanyl Screen Ur Barbiturates Screen Ur Phencyclidine Scrn Ur Amphetamines Screen U Benzodiazepines Scrn Urine Cocaine Screen U Marijuana (THC) Screen Ethyl Alcohol COVID-19 ([facility]) COVID-19 Clin Com 08/25/22 08:48 Blood - Venous Blood Culture - Final No growth after 5 days. 08/25/22 08:24 Blood - Venous Blood Culture - Final No growth after 5 days. Imaging Diagnostic Imaging Impressions Head CT 08/25/22 08:13 IMPRESSION: No acute intracranial pathology. 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 -hx of depression, sometimes severe; this is first manic episode triggered by titrated Zoloft (plus cannabis). Pt grandiose and manic, but has insight into illness and wants treatment. Agreed to start [place] [facility] course: On admission, patient manic, hyperverbal with moderately pressured speech; grandiose thinking. No SI, no HI and no AVH. She has some insight and says she is probably manic and that is why she self presented; patient agrees with starting lithium. Over the subsequent days, patient's noel began to subside and she was able to sleep; she remained intrusive, with many complaints and some delusional thinking however these continued to subside as well. Patient placed a 3 day notice and wanted to discharge. On day of discharge, Track Leader finds that Patient is organized in speech and behavior; her thought process is linear and logical; she is calm, articulate, able to listen, and explains herself in an organized way with appropriate perspective and insight.? Discussed with professor of social work who agrees with this assessment and that patient is appropriate to continue care in the community. Patient reports that she is feeling much better since getting on lithium.? She continues to agree that she was manic at admission but is no longer feeling anxious, depression resolved and is feeling much more clear minded; she says there are several things she does not quite remember about the days prior to admission but it is starting to come back to her and getting increasingly clear.? Patient and job specification writer discussed comments she made last week, regarding mathematical equations, map of [place]...? Patient agrees that much of that does not make sense; she ties some of it into her own personal exploration of her roots to [place]; she says these are just personal thoughts and she has never shared that with anybody else and has no intentions of it.? She discussed her history again and agrees that this episode was likely triggered right after her Zoloft dose was increased to 150 mg; patient also shared about other challenging things that have gone on over the past several months that have been challenging, including her work visa issues, being without income and her brother's .? Discussed medication, lithium and thoroughly reviewed risks/side effects and including but not limited to avoiding NSAIDs and staying hydrated; patient has questions and understood and wanted to continue taking it, saying this is the best she has probably ever felt.? Patient is leaving before labs redrawn but agrees to come back and get labs.? She is also leaving before specific psychiatric prescriber can be obtained, however she says she is very careful following up and will do so, wanting to remain on the medication.? Patient reports that she has been feeling itchy over the past several days and is not sure why; job specification writer reviewed that although very uncommon as possible for lithium to cause puritis; patient says it is tolerable and will continue taking the medica tion for now. Patient very much wants discharge and feels that she is back to her regular self.? She said it is very hard being on the unit, with people fighting and yelling (and indeed the unit has been at a high acuity over the weekend), feeling overwhelmed; patient says she is starting to feel unsafe due to the high acuity, and is keeping her distance from some patients.? She signed a 3 day n otice was placed over the weekend; She continues to assert that she intended to file a 3 day notice prior to this and gave a hand written note regarding this before the weekend and is bothered that it cannot be found; today she she asked that her earlier request be honored instead of having to wait another 2 days for discharge. 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 Partial day program discussed with patient however she declined preferring to continue working with her outpatient therapist with whom she has a good rapport; job specification writer discussed case with Ruchi, her therapist who will continue seeing patient and find time for an appointment this week. Patient's day notice is due in 2 days; however she is not in imminent risk of harm to herself or others and does not rise to the level of involuntary commitment.? As mentioned she is organized in speech and behavior and there is no reason to suspect she cannot take care of herself in the community.? Patient's request for discharge honored. Time spent discussing smoking cessation with patient: 3 to 10 minutes Status at Discharge Functional status at discharge: independent ambulation Overall status at discharge: patient is back to baseline Time Spent with Patient Time attestation: Total time managing care of this patient today ____ minutes. Time spent: Greater than 30 minutes Discharge Plan Discharge Anticipated Discharge Date/Time: 08/31/22 16:00 Patient Disposition: Home, Self-Care Discharge Diagnosis: Bipolar I disorder, most recent episode manic, in full remission Referrals: Nirmala Hickman [Other] - 1 Week (Therapist was contacted and will be in contact with patient. Patient should follow up in 24hr to confirm an appointment. ) [facility] [Other] - 1 Week (Follow up to establish as a new patient. ) Sherlyn Mccain NP [Primary Care Provider] - 1 Week Caty Souza MD [Physician] - 1 Week (Chronic migraine s/p TBI) Discharge Medications: New lithium carbonate 300 mg Tablet Extended Release 600 mg PO BEDTIME 30 Days Qty: 60 1RF trazodone 50 mg Tablet See Rx Instructions .ROUTE .COMPLEX PRN (Reason: Insomnia) 30 Days Qty: 60 0RF Rx Instructions: take 1.5 to 2 tabs at bedtime as needed for insomnia Continued budesonide-formoterol [Symbicort] 160-4.5 mcg/actuation Hfa Aerosol Inhaler 2 puff INHALATION BID fluticasone propionate 50 mcg/actuation [place],Suspension 1 spray INTRANASAL DAILY Rx Instructions: administer into each nostril Discontinued sertraline 150 mg Capsule 150 mg PO DAILY Discharge Orders: Discharge Order (Routine); Ordered 08/31/22 Ordered By: Mekhi Gallegos Diet: Regular diet Activity on Discharge: As tolerated Stand Alone Forms: Patient Portal Discharge page, Community Support Other Ambulatory Orders: Blood Urea Nitrogen (Routine) Timeframe: [id number] Facility: [facility] - Location: Laboratory Ordered By: Mekhi Gallegos Creatinine (Routine) Timeframe: 20220901 Facility: [facility] - Location: Laboratory Ordered By: Mekhi Gallegos [place] (Routine) Timeframe: 20220901 Facility: [facility] - Location: Laboratory Ordered By: Mekhi Gallegos TSH reflex Free T4 (Routine) Timeframe: [id number] Facility: [facility] - Location: Laboratory Ordered By: Mekhi Gallegos Care Plan Goals: Maintain mood and safe behaviors Take medications as prescribed Avoid Cannabis Practice coping skills Continue with outpatient providers and reach out to them as needed Health Concerns: Mood stability and behaviors Migraines Hx of concussion Plan of Treatment: Follow up with your PCP, psychiatric provider and other outpatient providers regarding above concerns Take medications as prescribed Assessment: Risk assessment at time of discharge:? Patient was interviewed prior to discharge and found to be fully oriented and without any SI or HI. Patient has insight and demonstrates good judgment in terms of wanting to pursue treatment. Patient is not in imminent risk of harm to self or others and has a safety plan that includes presenting to the closest ER or calling 911 if feeling unsafe.? Patient has been observed closely by nursing and unit staff throughout admission; patient has not engaged in any behaviors that suggest dangerousness to self or others and has demonstrated appropriate behaviors and impulse control Discharge Date/Time: 08/31/22 16:20
== END 2022-08-31 16:20 | disposition home or self-care (01) | DRG 753 ==
LOC: HO.ED 06:58 → HO.PM5 08-26 16:57
PROVIDERS: Admitting Provider Clinical Nurse Specialist Psychiatric/Mental Health, Adult; Emergency Provider Emergency Medicine; PCP Nurse Practitioner; Visit Provider Psychiatry & Neurology Psychiatry
DX: F31.2 Bipolar disorder, current episode manic severe with psychotic features (principal); F43.10 Post-traumatic stress disorder, unspecified; Z20.822 Contact with and (suspected) exposure to COVID-19; Z87.891 Personal history of nicotine dependence; Z88.0 Allergy status to penicillin; Z88.2 Allergy status to sulfonamides; Z79.51 Long term (current) use of inhaled steroids; Z79.899 Other long term (current) drug therapy
CPT/HCPCS: 36415; 70450; 80053; 80061; 80307; 81001; 81025; 82077; 82607; 82746; 83036; 83605; 83735; 84439; 84443; 85025; 87040; 87635; 93005; 99285; S9485

== ENCOUNTER 2022-09-01 15:34 | Outpatient (REF) | payer BC, SELFPAY ==
[2022-09-01 16:43] LABS: Lithium 0.31 mmol/L (0.60-1.20)
[2022-09-01 16:57] LABS: Blood Urea Nitrogen 11 mg/dL (9-16); Estimated Glomerular Filt Rate > 60
[2022-09-01 17:13] LABS: TSH reflex Free T4 1.09 uIU/mL (0.32-4.0)
== END 2022-09-01 15:35 | disposition home or self-care (01) ==
LOC: HO.LAB 15:34
PROVIDERS: PCP Nurse Practitioner; Visit Provider Psychiatry & Neurology Psychiatry
DX: Z79.899 Other long term (current) drug therapy (principal)
CPT/HCPCS: 36415; 80178; 82565; 84443; 84520